=== PATIENT | male | born 1995 | race Caucasian/White ===

== ENCOUNTER 2019-08-28 21:46 | Emergency (ER) | payer SELFPAY ==
[~2019-08-28] VITALS: Ht 177.8 cm; Wt 113.6 kg
[2019-08-28 21:53] VITALS: BP 124/88; TEMP 99.4
[2019-08-28] MEDS ORDERED: CIPRO HC OTIC S10 ML OT (22:43)
[2019-08-28] MEDS ORDERED: NORCO 325 MG-51 TAB PO (22:43)
[2019-08-28] MEDS ORDERED: CIPRO 500MG TA500 MG PO (22:43)
[2019-08-28 23:45] VITALS: PULSE 99
== END 2019-08-28 23:45 | disposition home or self-care (01) ==
LOC: COL.ER 21:46
DX: H60.501 Unspecified acute noninfective otitis externa, right ear (principal)

== ENCOUNTER → 2019-11-17 | Outpatient (CLI) | payer SELFPAY ==
[~2019-11-17] MED LIST: CIPRO 500MG TA500 MG PO; CIPRO HC OTIC S10 ML OT; NORCO 325 MG-51 TAB PO
== END ==
LOC: COL.RAD 07:20
DX: R10.9 Unspecified abdominal pain (principal); R11.10 Vomiting, unspecified